=== PATIENT | male | born 1935 | race Caucasian/White ===

== ENCOUNTER 2018-09-19 15:26 | Emergency (ER) | payer MEDICARE ==
[2018-09-19 15:33] VITALS: TEMP 98
[2018-09-19] MEDS ORDERED: predniSONE 20 MG TAB PO STA (16:15)
[2018-09-19] MEDS ORDERED: ASPIRIN 81 MG PO STA (16:15)
[2018-09-19] MEDS ORDERED: IPRATROPIUM-ALBUTEROL 3 ML NEB INHALATION STA (16:15)
--- NOTE | 2018-09-19 16:18 | ED ---
General Adult HPI - General Chief complaint: Shortness of Breath Stated complaint: SOB Time Seen by Provider: 09/19/18 16:06 Source: patient Mode of arrival: ambulatory Limitations: no limitations - History of Present Illness Initial comments: Patient is an 82-year-old male who presents with a chief complaint of cough for over a week. The patient states that he has been coughing up yellow phlegm. He states that he gets short of breath when he tries to exert himself. It is a history of asthma, he quit smoking 50 years ago. Patient does not take any medications at home. He does not have any history of cardiac pathology, strokes , DVTs or PEs. He does not have any known ALLERGIES. The patient states that he has had sick contacts. He cannot identify any aggravating or alleviating factors to his cough. - Related Data Home Medications Medication Instructions Recorded Confirmed Herbal Multivitamin 1 tab PO DAILY 09/19/18 09/19/18 Previous Rx's Medication Instructions Recorded Albuterol Inhaler [Ventolin Hfa 1 - 2 puff INHALATION Q4H #1 09/19/18 Inhaler] inhaler Azithromycin [Zithromax] 250 mg PO DIRECTED #6 tab 09/19/18 predniSONE [Deltasone] 20 mg PO DAILY #12 tablet 09/19/18 Allergies Allergy/AdvReac Type Severity Reaction Status Date / Time No Known Allergies Allergy Verified 09/19/18 16:40 Review of Systems ROS Statement: Those systems with pertinent positive or pertinent negative responses have been documented in the HPI. ROS Other: All systems not noted in ROS Statement are negative. Respiratory: Reports: cough, dyspnea Past Medical History Past Medical History: Asthma History of Any Multi-Drug Resistant Organisms: None Reported Past Surgical History: Hernia Repair Additional Past Surgical History / Comment(s): Shoulder, Adam Knee, Back Past Psychological History: No Psychological Hx Reported Smoking Status: Never smoker Past Alcohol Use History: Occasional Past Drug Use History: None Reported General Exam Limitations: no limitations General appearance: alert, in no apparent distress Head exam: Present: atraumatic, normocephalic Eye exam: Present: normal appearance ENT exam: Present: normal exam, mucous membranes moist Neck exam: Present: normal inspection. Absent: lymphadenopathy Respiratory exam: Present: wheezes (Expiratory), decreased breath sounds Cardiovascular Exam: Present: regular rate, normal rhythm GI/Abdominal exam: Present: soft, other (Diastases recti present.). Absent: distended, tenderness Rectal exam: Present: deferred Extremities exam: Present: normal inspection Back exam: Present: normal inspection Neurological exam: Present: alert, oriented X3, CN II-XII intact, normal gait Psychiatric exam: Present: normal affect, normal mood Skin exam: Present: warm, dry, intact Course Vital Signs 09/19/18 09/19/18 09/19/18 15:29 16:30 16:52 Temperature 98 F Pulse Rate 100 100 92 Respiratory 24 Rate Blood Pressure 165/89 O2 Sat by Pulse 98 Oximetry 09/19/18 17:00 Temperature Pulse Rate 94 Respiratory Rate Blood Pressure 157/89 O2 Sat by Pulse 96 Oximetry Medical Decision Making - Medical Decision Making Patient presents with a chief complaint of a cough. On initial evaluation, vital signs are stable, patient is in no acute distress. Patient will be evaluated with basic labs including cardiac enzymes, and chest x-ray. He was given aspirin, DuoNeb, prednisone. Suspect bronchitis. 6:23 PM Lab evaluation this patient is unremarkable except for mild increase in creatinine which is of unknown chronicity. Electrolytes are within normal limits. Chest x-ray shows no acute process, of note there is a mild degree of pulmonary fibrosis. At reevaluation, the patient states he feels improved after breathing treatments and steroids. He'll be treated for bronchitis on the outpatient basis. He was instructed to follow up with primary care in 1-2 days, return to the ED if symptoms worsen or change. - Lab Data Result diagrams: 09/19/18 16:40 09/19/18 16:40 Lab Results 09/19/18 09/19/18 09/19/18 Range/Units 16:20 16:40 16:40 WBC 5.3 (3.8-10.6) k/uL RBC 3.95 L (4.30-5.90) m/uL Hgb 12.7 L (13.0-17.5) gm/dL Hct 37.4 L (39.0-53.0) % MCV 94.6 (80.0-100.0) fL MCH 32.2 (25.0-35.0) pg MCHC 34.0 (31.0-37.0) g/dL RDW 12.0 (11.5-15.5) % Plt Count 210 (150-450) k/uL Neutrophils % 75 % Lymphocytes % 14 % Monocytes % 7 % Eosinophils % 2 % Basophils % 0 % Neutrophils # 4.0 (1.3-7.7) k/uL Lymphocytes # 0.7 L (1.0-4.8) k/uL Monocytes # 0.4 (0-1.0) k/uL Eosinophils # 0.1 (0-0.7) k/uL Basophils # 0.0 (0-0.2) k/uL Sodium 138 (137-145) mmol/L Potassium 4.6 (3.5-5.1) mmol/L Chloride 105 (98-107) mmol/L Carbon Dioxide 25 (22-30) mmol/L Anion Gap 8 mmol/L BUN 22 H (9-20) mg/dL Creatinine 1.49 H (0.66-1.25) mg/dL Est GFR (CKD-EPI)AfAm 49 (>60 ml/min/1.73 sqM) Est GFR (CKD-EPI)NonAf 43 (>60 ml/min/1.73 sqM) Glucose 116 H (74-99) mg/dL Calcium 9.1 (8.4-10.2) mg/dL Troponin I (0.000-0.034) ng/mL NT-Pro-B Natriuret Pep pg/mL Influenza Type A RNA Not Detected (Not Detectd) Influenza Type B (PCR) Not Detected (Not Detectd) 09/19/18 09/19/18 Range/Units 16:40 16:40 WBC (3.8-10.6) k/uL RBC (4.30-5.90) m/uL Hgb (13.0-17.5) gm/dL Hct (39.0-53.0) % MCV (80.0-100.0) fL MCH (25.0-35.0) pg MCHC (31.0-37.0) g/dL RDW (11.5-15.5) % Plt Count (150-450) k/uL Neutrophils % % Lymphocytes % % Monocytes % % Eosinophils % % Basophils % % Neutrophils # (1.3-7.7) k/uL Lymphocytes # (1.0-4.8) k/uL Monocytes # (0-1.0) k/uL Eosinophils # (0-0.7) k/uL Basophils # (0-0.2) k/uL Sodium (137-145) mmol/L Potassium (3.5-5.1) mmol/L Chloride (98-107) mmol/L Carbon Dioxide (22-30) mmol/L Anion Gap mmol/L BUN (9-20) mg/dL Creatinine (0.66-1.25) mg/dL Est GFR (CKD-EPI)AfAm (>60 ml/min/1.73 sqM) Est GFR (CKD-EPI)NonAf (>60 ml/min/1.73 sqM) Glucose (74-99) mg/dL Calcium (8.4-10.2) mg/dL Troponin I <0.012 (0.000-0.034) ng/mL NT-Pro-B Natriuret Pep 168 pg/mL Influenza Type A RNA (Not Detectd) Influenza Type B (PCR) (Not Detectd) Disposition Clinical Impression: Bronchitis Disposition: HOME SELF-CARE Condition: Good Instructions: Acute Bronchitis (ED) Is patient prescribed a controlled substance at d/c from ED?: No Referrals: Kadie Gorman MD [Primary Care Provider] - 1-2 days
[2018-09-19 17:03] LABS: Basophils % (A) 0 %; Eosinophils # (A) 0.1 k/uL (0-0.7); Eosinophils % (A) 2 %; HCT 37.4 % (39.0-53.0); HGB 12.7 gm/dL (13.0-17.5); Lymphocytes # (A) 0.7 k/uL (1.0-4.8); Lymphocytes % (A) 14 %; MCH 32.2 pg (25.0-35.0); MCV 94.6 fL (80.0-100.0); Mean Platelet Volume 7.2; Monocytes # (A) 0.4 k/uL (0-1.0); Monocytes % (A) 7 %; Neutrophils % (A) 75 %; Platelet Count 210 k/uL (150-450); RBC 3.95 m/uL (4.30-5.90); WBC 5.3 k/uL (3.8-10.6)
[2018-09-19 17:14] LABS: Calcium 9.1 mg/dL (8.4-10.2); Potassium 4.6 mmol/L (3.5-5.1)
--- NOTE | 2018-09-19 17:19 | XR ---
EXAMINATION TYPE: XR chest 2V DATE OF EXAM: 09/19/2018 COMPARISON: NONE HISTORY: Cough and congestion TECHNIQUE: Frontal and lateral views of the chest are obtained. FINDINGS: There is no heart failure nor confluent pneumonic infiltrate. Costophrenic angles are ashlie r. There are chest leads. There is right shoulder prosthesis. There is some coarsening of the interst itial markings in the mid and upper lobes. IMPRESSION: No active cardiopulmonary disease. Mild pulmonary fibrosis. Normal heart.
[2018-09-19 19:11] VITALS: BP 154/76; PULSE 77; RESP 18
== END 2018-09-19 19:11 | disposition home or self-care (01) ==
LOC: EC 15:26
DX: J45.909 Unspecified asthma, uncomplicated (principal); J84.10 Pulmonary fibrosis, unspecified; R79.89 Other specified abnormal findings of blood chemistry; Z87.891 Personal history of nicotine dependence
CPT/HCPCS: 36415; 94640; 93005; 83880; 80048; 84484; 85025; 87502; 71046; 99285; J7512

== ENCOUNTER → 2021-01-23 | Outpatient (CLI) | payer MEDICARE ==
--- NOTE | 2021-01-23 11:53 | XR ---
EXAMINATION TYPE: XR Hip Complete RT DATE OF EXAM: 01/23/2021 COMPARISON: NONE HISTORY: Pain TECHNIQUE: 2 views submitted FINDINGS: There is no evidence of erosive change or acute fracture. Diffuse osteopenia. Severe narrowing concen trically the joint space. Postsurgical changes lower lumbar spine. IMPRESSION: 1. 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
--- NOTE | 2021-01-23 11:54 | XR ---
EXAM TYPE: LUMBAR SPINE X RAY SERIES COMPARISON: NONE HISTORY: Pain TECHNIQUE: 4 views are submitted. FINDINGS: Postsurgical change throughout the lumbar spine with multilevel severe degenerative disc disease. Min imal anterolisthesis of L4 relative to L5. Vertebral body height is preserved. Diffuse osteopenia not ed. Multilevel severe degenerative disc disease. Curvature of the spine noted. SI joints symmetric. IMPRESSION: 1. Postoperative changes with minimal anterolisthesis L4 on L5.
== END | disposition home or self-care (01) ==
LOC: RADXRYALE 11:02
PROVIDERS: ATTEND Internal Medicine
DX: M16.11 Unilateral primary osteoarthritis, right hip (principal); M43.16 Spondylolisthesis, lumbar region
CPT/HCPCS: 72110; 73502

== ENCOUNTER → 2021-02-27 | Outpatient (CLI) | payer MEDICARE ==
--- NOTE | 2021-02-27 14:28 | US ---
EXAMINATION TYPE: US venous doppler duplex LE LT DATE OF EXAM: 02/27/2021 2:09 PM COMPARISON: None CLINICAL HISTORY: Left leg pain and swelling R22.42. SIDE PERFORMED: Left TECHNIQUE: The lower extremity deep venous system is examined utilizing real time linear array sonog maribel with graded compression, doppler sonography and color-flow sonography. VESSELS IMAGED: Common Femoral Vein Deep Femoral Vein Greater Saphenous Vein * Femoral Vein Popliteal Vein Small Saphenous Vein * Proximal Calf Veins (* superficial vessels) Left Leg: No evidence of deep venous thrombosis in the left lower extremity veins. IMPRESSION: No evidence of deep venous thrombosis in the left lower extremity veins.
== END | disposition home or self-care (01) ==
LOC: RADUSWWP 13:42
PROVIDERS: ATTEND Internal Medicine
DX: R22.42 Localized swelling, mass and lump, left lower limb (principal); M79.605 Pain in left leg

== ENCOUNTER → 2021-05-02 | Outpatient (CLI) | payer MEDICARE ==
--- NOTE | 2021-05-02 09:49 | US ---
EXAMINATION TYPE: US venous doppler duplex LE RT DATE OF EXAM: 05/02/2021 9:22 AM COMPARISON: Prev Left leg only CLINICAL HISTORY: R60.0 Edema. Pt states right leg pain and tightness SIDE PERFORMED: Right TECHNIQUE: The lower extremity deep venous system is examined utilizing real time linear array sonog maribel with graded compression, doppler sonography and color-flow sonography. VESSELS IMAGED: Common Femoral Vein Deep Femoral Vein Greater Saphenous Vein * Femoral Vein Popliteal Vein Small Saphenous Vein * Proximal Calf Veins (* superficial vessels) Right Leg: Negative for DVT IMPRESSION: 1. Right lower extremity ultrasound negative for deep venous thrombosis.
== END | disposition home or self-care (01) ==
LOC: RADUSWWP 09:03
PROVIDERS: ATTEND Internal Medicine Cardiovascular Disease
DX: R60.0 Localized edema (principal); M79.604 Pain in right leg

== ENCOUNTER → 2021-07-30 | Outpatient (CLI) | payer MEDICARE ==
[2021-07-30 20:30] LABS: HCT 35.4 % (39.6-50.0); HGB 11.2 g/dL (13.0-17.0); MCH 31.4 pg (27.0-32.0); MCHC 31.6 g/dL (32.0-37.0); MCV 99.2 fL (80.0-97.0); Mean Platelet Volume 9.8 fL (9.5-12.2); Platelet Count 243 X 10*3/uL (140-440); RBC 3.57 X 10*6/uL (4.40-5.60); RDW 12.7 % (11.5-14.5); WBC 7.29 X 10*3/uL (4.50-10.00)
== END | disposition home or self-care (01) ==
LOC: LABWHC1 12:43
PROVIDERS: ATTEND Nurse Practitioner Family
DX: I50.9 Heart failure, unspecified (principal)
CPT/HCPCS: 36415; 83880; 85027

== ENCOUNTER → 2021-07-31 | Outpatient (CLI) | payer MEDICARE ==
[2021-07-31 12:37] LABS: Glucose 2 Hour 115 mg/dL
[2021-08-01 10:20] LABS: ALT 25 U/L (4-49); AST 39 U/L (17-59); African American GFR (CKD) 43 (>60 ml/min/1.73 sqM); Albumin 3.5 g/dL (3.5-5.0); Albumin/Globulin Ratio 1.1; Alkaline Phosphatase 48 U/L (38-126); Anion Gap 9 mmol/L; Blood Urea Nitrogen 35 mg/dL (9-20); Calcium 9.5 mg/dL (8.4-10.2); Carbon Dioxide 24 mmol/L (22-30); Chloride 106 mmol/L (98-107); Globulin 3.2 g/dL; Glucose 115 mg/dL (74-99); Non-African American GFR(CKD) 37 (>60 ml/min/1.73 sqM); Potassium 4.2 mmol/L (3.5-5.1); Sodium 139 mmol/L (137-145); Total Bilirubin 0.6 mg/dL (0.2-1.3); Total Protein 6.7 g/dL (6.3-8.2)
== END | disposition home or self-care (01) ==
LOC: LABWHC1 08:28
PROVIDERS: ATTEND Psychiatry & Neurology Neurology
DX: I50.9 Heart failure, unspecified (principal)
CPT/HCPCS: 36415; 80053; 82947; 82950

== ENCOUNTER 2021-08-13 07:57 | Emergency (ER) | payer MEDICARE ==
[2021-08-13] MEDS ORDERED: IPRATROPIUM-ALBUTEROL 3 ML NEB INHALATION STA (09:22)
[2021-08-13 09:43] LABS: Basophils % (A) 0 %; Eosinophils # (A) 0.1 k/uL (0-0.7); Eosinophils % (A) 3 %; HCT 33.4 % (39.0-53.0); HGB 10.9 gm/dL (13.0-17.5); Lymphocytes # (A) 0.7 k/uL (1.0-4.8); Lymphocytes % (A) 17 %; MCH 31.4 pg (25.0-35.0); MCHC 32.8 g/dL (31.0-37.0); MCV 95.6 fL (80.0-100.0); Mean Platelet Volume 7.2; Monocytes # (A) 0.3 k/uL (0-1.0); Monocytes % (A) 8 %; Neutrophils # (A) 2.8 k/uL (1.3-7.7); Neutrophils % (A) 70 %; Platelet Count 237 k/uL (150-450); RBC 3.49 m/uL (4.30-5.90); RDW 12.3 % (11.5-15.5); WBC 3.9 k/uL (3.8-10.6)
--- NOTE | 2021-08-13 09:54 | XR ---
EXAMINATION TYPE: XR chest 2V DATE OF EXAM: 08/13/2021 COMPARISON: 09/19/2018 TECHNIQUE: PA and lateral views submitted. HISTORY: Difficulty breathing FINDINGS: Hyperexpansion. Heart size normal. Postsurgical change involving the right shoulder vertebral column. No overt failure or pneumothorax. No pleural effusion. No consolidation. Degenerative change of the spine. IMPRESSION: 1. COPD
[2021-08-13 09:58] LABS: Albumin 3.5 g/dL (3.5-5.0); Magnesium 2.2 mg/dL (1.6-2.3); Potassium 4.3 mmol/L (3.5-5.1); Total Bilirubin 0.5 mg/dL (0.2-1.3); Total Protein 6.7 g/dL (6.3-8.2)
[2021-08-13 09:59] LABS: Partial Thromboplastin Time 25.9 sec (22.0-30.0); Prothrombin Time 10.4 sec (9.0-12.0)
--- NOTE | 2021-08-13 10:51 | ED ---
SOB HPI - General Chief Complaint: Shortness of Breath Stated Complaint: Cough, COPD Time Seen by Provider: 08/13/21 08:00 Source: patient, family Mode of arrival: ambulatory Limitations: no limitations - History of Present Illness Initial Comments: Patient is an 85-year-old male with past medical history of asthma who presents to the emergency department with reported shortness of breath. Daughter is at bedside and helps provide history. States that the patient has been short of breath for approximately 3 weeks however over the past 4 days the patient has had worsening symptoms. They have been using his inhalers as directed however the patient continues to be short of breath especially with exertion. He denies previous history of cardiac issues. Denies any chest pain. He does take Lasix 20 mg daily and denies any worsening lower extremity edema. He denies fevers or sick contacts with similar symptoms. No nausea, vomiting or diarrhea. Patient does have some abdominal distention for which she has been evaluated by his [facility] care physician with no concerning diagnosis. He admits to chronic left groin pain over the patient has a known hernia which is reducible. The patient is vaccinated against Covid. No other alleviating, precipitating or modifying factors - Related Data Home Medications Medication Instructions Recorded Confirmed Acetaminophen [Tylenol Arthritis] 650 mg PO Q12H PRN 08/13/21 08/13/21 Albuterol Inhaler [Ventolin Hfa 2 puff INHALATION RT-Q4H PRN 08/13/21 08/13/21 Inhaler] Albuterol Nebulized [Ventolin 2.5 mg INHALATION RT-Q6H PRN 08/13/21 08/13/21 Nebulized] Aspirin EC [Ecotrin Low Dose] 81 mg PO DAILY 08/13/21 08/13/21 Budesonide/Glycopyr/Formoterol 2 puff INHALATION RT-BID 08/13/21 08/13/21 [Breztri Aerosphere Inhaler] Furosemide [Lasix] 20 mg PO DAILY 08/13/21 08/13/21 QUEtiapine [SEROquel] 25 mg PO DAILY 08/13/21 08/13/21 QUEtiapine [SEROquel] 50 mg PO HS 08/13/21 08/13/21 lisinopriL [Zestril] 2.5 mg PO DAILY 08/13/21 08/13/21 Previous Rx's Medication Instructions Recorded Benzonatate [Tessalon Perles] 100 mg PO TID PRN #15 capsule 08/13/21 Codeine Phosphate/Guaifenesin 5 ml PO Q6H PRN 3 Days #60 ml 08/13/21 [Guaifen-Codeine 100-10 mg/5 ml] Dexamethasone [Decadron] 6 mg PO DAILY #5 tablet 08/13/21 Allergies Allergy/AdvReac Type Severity Reaction Status Date / Time No Known Allergies Allergy Verified 08/13/21 10:08 Review of Systems ROS Statement: Those systems with pertinent positive or pertinent negative responses have been documented in the HPI. ROS Other: All systems not noted in ROS Statement are negative. Past Medical History Past Medical History: Asthma History of Any Multi-Drug Resistant Organisms: None Reported Past Surgical History: Hernia Repair Additional Past Surgical History / Comment(s): Shoulder, Adam Knee, Back Past Psychological History: No Psychological Hx Reported Smoking Status: Never smoker Past Alcohol Use History: Occasional Past Drug Use History: None Reported General Exam Limitations: no limitations General appearance: alert, in no apparent distress Head exam: Present: atraumatic, normocephalic, normal inspection Eye exam: Present: normal appearance, PERRL, EOMI. Absent: scleral icterus, conjunctival injection, periorbital swelling ENT exam: Present: normal exam, mucous membranes moist Neck exam: Present: normal inspection. Absent: tenderness, meningismus, lymphadenopathy Respiratory exam: Present: wheezes (all lung [place] prior to treatment). Absent: respiratory distress, rales, rhonchi, stridor, accessory muscle use Cardiovascular Exam: Present: regular rate, normal rhythm, normal heart sounds. Absent: systolic murmur, diastolic murmur, rubs, gallop, clicks GI/Abdominal exam: Present: soft, distended, normal bowel sounds. Absent: tenderness, guarding, rebound, rigid Extremities exam: Present: normal inspection, full ROM, normal capillary refill. Absent: tenderness, pedal edema, joint swelling, calf tenderness Back exam: Present: normal inspection Neurological exam: Present: alert, oriented X3, CN II-XII intact Psychiatric exam: Present: normal affect, normal mood Skin exam: Present: warm, dry, intact, normal color. Absent: rash Course Vital Signs 08/13/21 08/13/21 08/13/21 07:59 09:50 10:00 Temperature 97.0 F L Pulse Rate 83 72 75 Respiratory 28 H Rate Blood Pressure 127/63 O2 Sat by Pulse 97 Oximetry 08/13/21 08/13/21 08/13/21 11:32 12:41 13:27 Temperature 98.0 F 98.2 F Pulse Rate 84 97 Respiratory 18 20 18 Rate Blood Pressure 141/88 128/72 O2 Sat by Pulse 98 98 Oximetry 08/13/21 14:29 Temperature 98.3 F Pulse Rate 84 Respiratory 16 Rate Blood Pressure 136/86 O2 Sat by Pulse 98 Oximetry Medical Decision Making - Medical Decision Making Upon arrival patient is placed into room 21. Thorough history and physical exam was performed. Patient placed on continuous pulse ox and cardiac monitoring. Patient does maintain saturations of 98% without any supplemental oxygen. He is placed on 2 L for comfort. Laboratory studies are obtained the patient is swabbed for Covid. Laboratory studies are reviewed. Creatinine is 1.7 which is near the patient's baseline. Covid is detected in the patient's swab. Chest x-ray does demonstrate COPD changes without acute infiltrate. CT of the patient's abdomen and pelvis is performed due to his abdominal distention which demonstrates gaseous distention without any acute findings. Incidental findings discussed with the patient. At this time and did discuss the diagnosis, differential and treatment plan. Patient will be discharged home at this time after antibody infusion. No hypoxia witnessed from the patient for which she would require admission and he does not demonstrate any signs of respiratory distress. Patient is instructed to follow-up with his primary care doctor within 2-4 days. If he does not have any improvement in his symptoms after antibody infusion he should return to the emergency room. Patient is given a dose of Decadron in the emergency department and will be placed on Decadron, codeine cough syrup and Tessalon Perles the outpatient setting. Daughter is at bedside. Both patient and daughter agreed to the treatment plan and the patient was discharged home in stable condition - Lab Data Result diagrams: 08/13/21 09:25 08/13/21 09:25 Lab Results 08/13/21 08/13/21 08/13/21 Range/Units 09:25 09:25 09:25 WBC 3.9 (3.8-10.6) k/uL RBC 3.49 L (4.30-5.90) m/uL Hgb 10.9 L (13.0-17.5) gm/dL Hct 33.4 L (39.0-53.0) % MCV 95.6 (80.0-100.0) fL MCH 31.4 (25.0-35.0) pg MCHC 32.8 (31.0-37.0) g/dL RDW 12.3 (11.5-15.5) % Plt Count 237 (150-450) k/uL MPV 7.2 Neutrophils % 70 % Lymphocytes % 17 % Monocytes % 8 % Eosinophils % 3 % Basophils % 0 % Neutrophils # 2.8 (1.3-7.7) k/uL Lymphocytes # 0.7 L (1.0-4.8) k/uL Monocytes # 0.3 (0-1.0) k/uL Eosinophils # 0.1 (0-0.7) k/uL Basophils # 0.0 (0-0.2) k/uL PT 10.4 (9.0-12.0) sec INR 1.0 (<1.2) APTT 25.9 (22.0-30.0) sec Sodium 136 L (137-145) mmol/L Potassium 4.3 (3.5-5.1) mmol/L Chloride 104 (98-107) mmol/L Carbon Dioxide 24 (22-30) mmol/L Anion Gap 8 mmol/L BUN 34 H (9-20) mg/dL Creatinine 1.74 H (0.66-1.25) mg/dL Est GFR (CKD-EPI)AfAm 40 (>60 ml/min/1.73 sqM) Est GFR (CKD-EPI)NonAf 35 (>60 ml/min/1.73 sqM) Glucose 97 (74-99) mg/dL Plasma Lactic Acid Yosi (0.7-2.0) mmol/L Calcium 9.0 (8.4-10.2) mg/dL Magnesium 2.2 (1.6-2.3) mg/dL Total Bilirubin 0.5 (0.2-1.3) mg/dL AST 37 (17-59) U/L ALT 22 (4-49) U/L Alkaline Phosphatase 98 (38-126) U/L Troponin I (0.000-0.034) ng/mL NT-Pro-B Natriuret Pep pg/mL Total Protein 6.7 (6.3-8.2) g/dL Albumin 3.5 (3.5-5.0) g/dL Lipase 45 (23-300) U/L Coronavirus (PCR) (Not Detectd) 08/13/21 08/13/21 08/13/21 Range/Units 09:25 09:25 09:25 WBC (3.8-10.6) k/uL RBC (4.30-5.90) m/uL Hgb (13.0-17.5) gm/dL Hct (39.0-53.0) % MCV (80.0-100.0) fL MCH (25.0-35.0) pg MCHC (31.0-37.0) g/dL RDW (11.5-15.5) % Plt Count (150-450) k/uL MPV Neutrophils % % Lymphocytes % % Monocytes % % Eosinophils % % Basophils % % Neutrophils # (1.3-7.7) k/uL Lymphocytes # (1.0-4.8) k/uL Monocytes # (0-1.0) k/uL Eosinophils # (0-0.7) k/uL Basophils # (0-0.2) k/uL PT (9.0-12.0) sec INR (<1.2) APTT (22.0-30.0) sec Sodium (137-145) mmol/L Potassium (3.5-5.1) mmol/L Chloride (98-107) mmol/L Carbon Dioxide (22-30) mmol/L Anion Gap mmol/L BUN (9-20) mg/dL Creatinine (0.66-1.25) mg/dL Est GFR (CKD-EPI)AfAm (>60 ml/min/1.73 sqM) Est GFR (CKD-EPI)NonAf (>60 ml/min/1.73 sqM) Glucose (74-99) mg/dL Plasma Lactic Acid Yosi 1.0 (0.7-2.0) mmol/L Calcium (8.4-10.2) mg/dL Magnesium (1.6-2.3) mg/dL Total Bilirubin (0.2-1.3) mg/dL AST (17-59) U/L ALT (4-49) U/L Alkaline Phosphatase (38-126) U/L Troponin I <0.012 (0.000-0.034) ng/mL NT-Pro-B Natriuret Pep 163 pg/mL Total Protein (6.3-8.2) g/dL Albumin (3.5-5.0) g/dL Lipase (23-300) U/L Coronavirus (PCR) (Not Detectd) 08/13/21 Range/Units 09:25 WBC (3.8-10.6) k/uL RBC (4.30-5.90) m/uL Hgb (13.0-17.5) gm/dL Hct (39.0-53.0) % MCV (80.0-100.0) fL MCH (25.0-35.0) pg MCHC (31.0-37.0) g/dL RDW (11.5-15.5) % Plt Count (150-450) k/uL MPV Neutrophils % % Lymphocytes % % Monocytes % % Eosinophils % % Basophils % % Neutrophils # (1.3-7.7) k/uL Lymphocytes # (1.0-4.8) k/uL Monocytes # (0-1.0) k/uL Eosinophils # (0-0.7) k/uL Basophils # (0-0.2) k/uL PT (9.0-12.0) sec INR (<1.2) APTT (22.0-30.0) sec Sodium (137-145) mmol/L Potassium (3.5-5.1) mmol/L Chloride (98-107) mmol/L Carbon Dioxide (22-30) mmol/L Anion Gap mmol/L BUN (9-20) mg/dL Creatinine (0.66-1.25) mg/dL Est GFR (CKD-EPI)AfAm (>60 ml/min/1.73 sqM) Est GFR (CKD-EPI)NonAf (>60 ml/min/1.73 sqM) Glucose (74-99) mg/dL Plasma Lactic Acid Yosi (0.7-2.0) mmol/L Calcium (8.4-10.2) mg/dL Magnesium (1.6-2.3) mg/dL Total Bilirubin (0.2-1.3) mg/dL AST (17-59) U/L ALT (4-49) U/L Alkaline Phosphatase (38-126) U/L Troponin I (0.000-0.034) ng/mL NT-Pro-B Natriuret Pep pg/mL Total Protein (6.3-8.2) g/dL Albumin (3.5-5.0) g/dL Lipase (23-300) U/L Coronavirus (PCR) Detected A (Not Detectd) - EKG Data EKG Comments: EKG demonstrates a sinus rhythm with a ventricular rate of 80. OK interval 138. QRS 80. QTC 440. Some ST depression in 2, 3 [address]VF. No acute ST segment elevations. Morphology is similar in appearance from EKG in 2018 Disposition Clinical Impression: COVID-19, Respiratory insufficiency Disposition: HOME SELF-CARE Condition: Stable Instructions (If sedation given, give patient instructions): Coronavirus Disease 2019 (COVID-19) Additional Instructions: You were given antibodies today in the emergency department. Please take the steroids as directed. Use your inhaler every 4 hours. Follow up with your primary care doctor. Return to the emergency department for any new or worsening symptoms. I recommend that you buy pulse ox and if your oxygenation sustains in the 80s to return to the hospital Prescriptions: Dexamethasone [Decadron] 6 mg PO DAILY #5 tablet Codeine Phosphate/Guaifenesin [Guaifen-Codeine 100-10 mg/5 ml] 5 ml PO Q6H PRN 3 Days #60 ml PRN Reason: Cough Benzonatate [Tessalon Perles] 100 mg PO TID PRN #15 capsule PRN Reason: Cough Is patient prescribed a controlled substance at d/c from ED?: Yes When asked, does pt state using other controlled substances?: No If prescribed controlled substance>3 days was MAPS reviewed?: Prescribed <3 Days If opioid is for acute pain is fill amount 7 days or less?: Yes If Rx opioid, was Start Talking consent form obtained?: Yes Referrals: Kadie Gorman MD [Primary Care Provider] - 1-2 days Time of Disposition: 12:56
--- NOTE | 2021-08-13 11:45 | CT ---
EXAMINATION TYPE: CT abdomen pelvis wo con DATE OF EXAM: 08/13/2021 COMPARISON: None INDICATION: Stomach bloating and abdominal pain DLP: 815.2 mGycm, Automated exposure control for dose reduction was used. CONTRAST: 0 mL of Isovue 300. Study performed without Oral Contrast TECHNIQUE: Axial images were obtained from above the diaphragm to the pubic rami in the axial plane a t 5 mm thick sections. Reconstructed images are reviewed on the computer in the coronal plane. Beam hardening artifact from lumbar fixation causes some limitation during this examination. FINDINGS: Limited CT sections are obtained the lung bases. The lung bases are clear. Small hiatal hernia is p resent. CT ABDOMEN: Liver: Normal Spleen: Normal Pancreas: Normal Adrenal glands: The adrenal glands are normal. Gallbladder: Normal Kidneys: No masses are evident. No hydronephrosis is present. No cysts are present. Delayed images were obtained through the kidneys, which remain unremarkable. Aorta: Vascular calcification is within the aorta. Inferior vena cava: Normal. CT PELVIS: Loops of bowel within the abdomen and pelvis are normal. This study is without oral contrast. Appendix: Normal as visualized. Urinary bladder: Distended. There may be an diverticulum posterior and superior to the prostate. Yariel tional diverticulum may be near the left inguinal region. Left inguinal hernia is present. Genitourinary structures: Prostate is prominent. Osseous structures: No suspicious lytic or sclerotic lesions. Postsurgical changes from fixation rods are evident to the lumbar spine and lower thoracic region. IMPRESSIONS: 1. Prostate hypertrophy with distended urinary bladder. Urinary bladder may have a couple of diverti culi, one of which may extend minimally into a left inguinal hernia. 2. Postsurgical changes through the lumbar spine. 3. Hiatal hernia
[2021-08-13] MEDS ORDERED: SODIUM CHLORIDE 0.9% 50 ML IVPB ONE (12:45)
[2021-08-13] MEDS ORDERED: DEXAMETHASONE SOD PHOSPHATE 10 MG/ML 1 ML VIAL IVP STA (12:47)
[2021-08-13] MEDS ORDERED: CASIRIVIMAB (REGN10933) (EUA) 600 MG, IMDEVIMAB (REGN10987) (EUA) 600 MG in SODIUM CHLO... IVPB ONE (13:00)
[2021-08-13 14:31] VITALS: BP 136/86; PULSE 84; RESP 16; TEMP 98.3
== END 2021-08-13 14:31 | disposition home or self-care (01) ==
LOC: EC 07:57
DX: U07.1 COVID-19 (principal); R06.89 Other abnormalities of breathing; J45.909 Unspecified asthma, uncomplicated; Z79.82 Long term (current) use of aspirin
CPT/HCPCS: 99285; 96365; 96375; 36415; 94640; 93005; 83880; 80053; 83605; 83690; 83735; 84484; 85025; 85610; 85730; 87635; 71046; 74176; J1100; Q0243

== ENCOUNTER 2021-10-29 03:23 | Emergency (ER) | payer MEDICARE ==
[2021-10-29 03:52] VITALS: BP 131/77; PULSE 83; RESP 16; TEMP 97.6
--- NOTE | 2021-10-29 04:03 | ED ---
General Adult HPI - General Chief complaint: Fall Stated complaint: Fall Time Seen by Provider: 10/29/21 03:25 Source: patient, family, EMS, RN notes reviewed, old records reviewed Mode of arrival: EMS - History of Present Illness Initial comments: 85-year-old male presenting status post fall. Patient fell striking the right side of his face and on the back of his head. No anticoagulation. There is some discussion about goals of care with this patient. There may be discussion of hospice care. Patient's daughters wanted him evaluated there was concern for possible UTI. There was no external signs of trauma, no bleeding. - Related Data Home Medications Medication Instructions Recorded Confirmed Acetaminophen [Tylenol Arthritis] 650 mg PO Q12H PRN 08/13/21 08/13/21 Albuterol Inhaler [Ventolin Hfa 2 puff INHALATION RT-Q4H PRN 08/13/21 08/13/21 Inhaler] Albuterol Nebulized [Ventolin 2.5 mg INHALATION RT-Q6H PRN 08/13/21 08/13/21 Nebulized] Aspirin EC [Ecotrin Low Dose] 81 mg PO DAILY 08/13/21 08/13/21 Budesonide/Glycopyr/Formoterol 2 puff INHALATION RT-BID 08/13/21 08/13/21 [Breztri Aerosphere Inhaler] Furosemide [Lasix] 20 mg PO DAILY 08/13/21 08/13/21 QUEtiapine [SEROquel] 25 mg PO DAILY 08/13/21 08/13/21 QUEtiapine [SEROquel] 50 mg PO HS 08/13/21 08/13/21 lisinopriL [Zestril] 2.5 mg PO DAILY 08/13/21 08/13/21 Previous Rx's Medication Instructions Recorded Benzonatate [Tessalon Perles] 100 mg PO TID PRN #15 capsule 08/13/21 Codeine Phosphate/Guaifenesin 5 ml PO Q6H PRN 3 Days #60 ml 08/13/21 [Guaifen-Codeine 100-10 mg/5 ml] Dexamethasone [Decadron] 6 mg PO DAILY #5 tablet 08/13/21 Allergies Allergy/AdvReac Type Severity Reaction Status Date / Time No Known Allergies Allergy Verified 08/13/21 10:08 Review of Systems ROS Statement: Those systems with pertinent positive or pertinent negative responses have been documented in the HPI. ROS Other: All systems not noted in ROS Statement are negative. Past Medical History Past Medical History: Asthma History of Any Multi-Drug Resistant Organisms: None Reported Past Surgical History: Hernia Repair Additional Past Surgical History / Comment(s): Shoulder, Adam Knee, Back Past Psychological History: No Psychological Hx Reported Smoking Status: Never smoker Past Alcohol Use History: Occasional Past Drug Use History: None Reported General Exam General appearance: alert, in no apparent distress Head exam: Present: atraumatic, normocephalic Eye exam: Present: normal appearance, PERRL ENT exam: Present: mucous membranes moist Neck exam: Present: normal inspection. Absent: tenderness, meningismus Respiratory exam: Present: normal lung sounds bilaterally. Absent: respiratory distress, wheezes Cardiovascular Exam: Present: regular rate, normal rhythm GI/Abdominal exam: Present: soft. Absent: distended, tenderness Extremities exam: Present: normal inspection, normal capillary refill. Absent: pedal edema, calf tenderness Neurological exam: Present: alert, CN II-XII intact. Absent: oriented X3 Psychiatric exam: Present: normal affect, normal mood Skin exam: Present: warm, dry, intact Course Vital Signs 10/29/21 03:32 Temperature 97.6 F Pulse Rate 83 Respiratory 16 Rate Blood Pressure 131/77 O2 Sat by Pulse 96 Oximetry Medical Decision Making - Medical Decision Making 85-year-old male with fall. Head CT, cervical spine and facial bones performed, negative for fracture or traumatic injury, no intracranial hemorrhage. Urinalysis negative. Daughter is at bedside. - Lab Data Lab Results 10/29/21 Range/Units 05:00 Urine Color Yellow Urine Appearance Clear (Clear) Urine pH 6.0 (5.0-8.0) Ur Specific [place] 1.017 (1.001-1.035) Urine Protein Trace H (Negative) Urine Glucose (UA) Negative (Negative) Urine Ketones Negative (Negative) Urine Blood Negative (Negative) Urine Nitrite Negative (Negative) Urine Bilirubin Negative (Negative) Urine Urobilinogen <2.0 (<2.0) mg/dL Ur Leukocyte Esterase Negative (Negative) Disposition Clinical Impression: Fall, Concussion Disposition: HOME SELF-CARE Condition: Fair Instructions (If sedation given, give patient instructions): Fall Prevention for Older Adults (ED) Is patient prescribed a controlled substance at d/c from ED?: No Referrals: Kadie Gorman MD [Primary Care Provider] - 1-2 days Time of Disposition: 05:25
--- NOTE | 2021-10-29 04:09 | CT ---
EXAMINATION TYPE: CT facial bones wo con DATE OF EXAM: 10/29/2021 COMPARISON: None HISTORY: fall/trauma. no prior on PACS CT DLP: 335.2 mGycm Automated exposure control for dose reduction was used. Images obtained from the bottom of the mandible to the top of the frontal sinuses without contrast. Mandibular ring is intact. The temporomandibular joints are intact. Maxilla is intact. Nasal bone is intact. The orbital margins are intact. There is no evidence of orbital blowout fracture. There is n ormal aeration of the mastoid sinuses. There is fairly normal aeration of the paranasal sinuses. Ther e is no evidence of retro-orbital mass. There is cerebral cortical atrophy. IMPRESSION: No acute abnormality of the facial bones. No fracture.
--- NOTE | 2021-10-29 04:12 | CT ---
EXAMINATION TYPE: CT brain donna ortega con DATE OF EXAM: 10/29/2021 COMPARISON: None HISTORY: fall/trauma. no prior on PACS CT DLP: 758.4 mGycm Automated exposure control for dose reduction was used. Images obtained from the skull base to T1 vertebra without contrast. Images of the brain obtained wit hout contrast. There is cerebral cortical atrophy. There is no mass effect or midline shift. There is no sign of int racranial hemorrhage. Calvarium is intact. There is no evidence of cerebral edema. Skull base is inta ct. Mastoid sinuses appear normal. The cervical vertebra have normal alignment. There is degenerative disc space narrowing from C4 to C7 with moderate spurring of the endplates. There is multilevel cervical facet arthropathy. There is no compression fracture. There are some fibrotic changes at the lung apices. There are irregular infilt rates at the lung apices. IMPRESSION: Cerebral atrophy. No acute intracranial abnormality. Spondylotic changes in the cervical spine. No fracture.
[2021-10-29 05:34] LABS: Appearance,Urine Clear (Clear); Bilirubin,Urine Negative (Negative); Blood,Urine Negative (Negative); Color,Urine Yellow; Glucose,Urine (UA) Negative (Negative); Ketones,Urine Negative (Negative); Leukocyte Esterase,Urine Negative (Negative); Nitrite,Urine Negative (Negative); Protein,Urine Trace (Negative); Specific Gravity,Urine 1.017 (1.001-1.035); Urobilinogen,Urine <2.0 mg/dL (<2.0)
== END 2021-10-29 05:47 | disposition home or self-care (01) ==
LOC: EC 03:23
DX: S06.0X9A Concussion with loss of consciousness of unspecified duration, initial encounter (principal); J45.909 Unspecified asthma, uncomplicated; Z79.51 Long term (current) use of inhaled steroids; Z79.899 Other long term (current) drug therapy; W18.30XA Fall on same level, unspecified, initial encounter
CPT/HCPCS: 70450; 70486; 72125; 81003; 99284